=== PATIENT | female | born 1980 | race Caucasian/White ===

== ENCOUNTER 2016-12-24 14:13 | Emergency (ER) | payer SELFPAY ==
[2016-12-24] MEDS ORDERED: AZIT250T PO (14:47)
--- NOTE | 2016-12-24 14:47 | PHYS DOC ---
Adult General Chief Complaint Chief Complaint: SORE THROAT HPI HPI 36-year-old female who states she's had sore throat and minimal cough for the last 2-3 days with fever at home that was taken this prior arrival of 101. She took a gram of Tylenol prior to arrival. She is afebrile nontoxic in appearance upon arrival. She states she had 4 of her children had strep infection. She denies any nausea or vomiting. She denies any trouble breathing. She denies any headache or dizziness. Review of Systems Review of Systems Constitutional: Denies fever or chills [] Eyes: Denies change in visual acuity, redness, or eye pain [] HENT: Denies nasal congestion, has sore throat [] Respiratory: Denies cough or shortness of breath [] Cardiovascular: No additional information not addressed in HPI [] GI: Denies abdominal pain, nausea, vomiting, bloody stools or diarrhea [] : Denies dysuria or hematuria [] Musculoskeletal: Denies back pain or joint pain [] Integument: Denies rash or skin lesions [] Neurologic: Denies headache, focal weakness or sensory changes [] Endocrine: Denies polyuria or polydipsia [] Current Medications Current Medications Current Medications Medications (Trade) Dose Ordered Sig/Cristino Start Time Stop Time Status Last Admin Dose Admin Ibuprofen (Motrin) 600 mg STAT ONCE 12/24/16 14:45 12/24/16 14:46 UNV Physical Exam Physical Exam Constitutional: Well developed, well nourished, no acute distress, non-toxic appearance. [] HENT: Normocephalic, atraumatic, bilateral external ears normal, oropharynx moist and injected, tonsillar exudates, nose normal. [] Eyes: PERRLA, EOMI, conjunctiva normal, no discharge. [] Neck: Normal range of motion, no tenderness, supple, no stridor. [] Cardiovascular:Heart rate regular rhythm, no murmur [] Lungs & Thorax: Bilateral breath sounds clear to auscultation [] Abdomen: Bowel sounds normal, soft, no tenderness, no masses, no pulsatile masses. [] Skin: Warm, dry, no erythema, no rash. [] Back: No tenderness, no CVA tenderness. [] Extremities: No tenderness, no cyanosis, no clubbing, ROM intact, no edema. [] Neurologic: Alert and oriented X 3, normal motor function, normal sensory function, no focal deficits noted. [] Psychologic: Affect normal, judgement normal, mood normal. [] EKG EKG [] Radiology/Procedures Radiology/Procedures [] Course & Med Decision Making Course & Med Decision Making Pertinent Labs and Imaging studies reviewed. (See chart for details) This otherwise healthy 36 year old female has a rapid strep test that is positive. She'll be prescribed a Z-Alfred as she has penicillin reaction. I counseled her to continue taking anti-inflammatories at home as needed for her symptoms and to continue to stay well-hydrated. Return precautions are provided. Patient is discharged with a prescription after a dose of Motrin. Dragon Disclaimer Dragon Disclaimer This chart was dictated in whole or in part using Voice Recognition software in a busy, high-work load, and often noisy Emergency Department environment. It may contain unintended and wholly unrecognized errors or omissions. Departure Departure: Impression: Primary Impression: Strep pharyngitis Disposition: 01 HOME, SELF-CARE Condition: IMPROVED Patient Instructions: Strep Throat Additional Instructions: Please take your antibiotics and motrin as needed for your sore throat and inflammation. Continue to drink plenty of fluids. Follow up closely with your primary doctor in the next 2-3 days. Return to the ER if you develop any worsening of your symptoms. Scripts Azithromycin (Zithromax)250 Mg Tablet1 Pkg PO UD #6 TAB Prov:SARA PARRISH DO 12/24/16 SARA PARRISH DO Dec 24, 2016 14:47
[2016-12-24 14:55] VITALS: BP 116/52
[2016-12-24] MEDS ORDERED: IBUPROFEN 600 MG TABLET. PO ONE (14:57)
== END 2016-12-24 14:55 | disposition home or self-care (01) ==
LOC: ER 14:13
DX: J02.0 Streptococcal pharyngitis (principal)
CPT/HCPCS: 87880; 99283